=== PATIENT | female | born 1945 | race Caucasian/White ===

== ENCOUNTER → 2017-03-15 | Outpatient (CLI) | payer MEDICARE, BC | LOC: WI 10:01 | PROVIDERS: ATTEND Family Medicine | DX: Z12.31 Encounter for screening mammogram for malignant neoplasm of breast (principal) | CPT/HCPCS: 77067; G0202 ==

== ENCOUNTER → 2017-03-28 | Outpatient (CLI) | payer MEDICARE, BC ==
--- NOTE | 2017-03-28 14:39 | RADIOLOGY REPORT (SQ) ---
EXAM DESCRIPTION: CT CHEST WITHOUT COMPLETED DATE/TIME: 03/28/2017 1:41 pm REASON FOR STUDY: DYSPNEA, UNSPECIFIED R06.00 DYSPNEA, UNSPECIFIED COMPARISON: 09/24/2013 TECHNIQUE: CT scan performed of the chest without intravenous contrast. Images reviewed with lung, soft tissue and bone windows. Reconstructed coronal and sagittal MPR images reviewed. All images st ored on PACS. All CT scanners at this facility use dose modulation, iterative reconstruction, and/or weight based d osing when appropriate to reduce radiation dose to as low as reasonably achievable (ALARA). [facility]: Dose Right [facility]: CareDose [facility]: Dose Right [facility]: Teradose 4D [facility]: Symbios [employer] RADIATION DOSE: 9.29 mGy. LIMITATIONS: No technical limitations. FINDINGS: LUNGS AND PLEURA: There is a stable small pulmonary nodule at the posterior margin of righ t hemidiaphragm on image 79. This is seen on the prior study. No other pulmonary nodules are seen. There are no infiltrates or effusions. HILAR AND MEDIASTINAL STRUCTURES: No identified masses or abnormal nodes. No obvious aneurysm. HEART AND VASCULAR STRUCTURES: No aneurysm. No pericardial effusion. UPPER ABDOMEN: No significant findings. Limited exam. THYROID AND OTHER SOFT TISSUES: No masses. No adenopathy. BONES: There is a 6 mm sclerotic area in the posterior left 4th rib. This demonstrates an increase i n density compared to the earlier study HARDWARE: None in the chest. OTHER: No other significant findings. IMPRESSION: 1. Stable right pulmonary nodule with no acute cardiopulmonary disease. 2. Probable small bone island in the left proximal 4th rib. This is an isolated sclerotic lesion. No additional osseous lesions are seen. TECHNICAL DOCUMENTATION: JOB ID: [id number] Quality ID # [id number]: Final reports with documentation of one or more dose reduction techniques (e.g., Au tomated exposure control, adjustment of the mA and/or kV according to patient size, use of iterative reconstruction technique) 2010 [employer]- All Rights Reserved
--- NOTE | 2017-03-28 21:00 | XCELERA REPORT ---
[address] [address] Transthoracic Echocardiogram Report Name: MAICOL CERRATO Age: 72 yrs Gender: Female : 1945 Patient Status: Outpatient Patient Location: RAD Study Date: 03/28/2017 02:08 PM Height: 62 in Weight: 180 lb BSA: 1.8 m2 Reason For Study: DYSPNEA Ordering Physician: COCO WALDEN Performed By: Zee Mendoza Interpretation Summary .small apical ericardial effusion, cannot r/o pericardial fat pad by echo. AV is normal w 3 cusps, No no AR. Mild Mirtral annular calcification with ,ild MR and no LA enlargement, no MS LV shows no hypertrophy, normal LVEF 65%, and stage I LV diastolic dysfunction, no LV enlargement, no regional wall motion abnormality, except basal anrt. wall not well seen. TR poorly seen upper normal RVSP, may be due to error sampling TR jet MMode/2D Measurements \T\ Calculations RVDd: 3.0 cm LVIDd: 4.0 cm FS: 42.1 % Ao root diam: 1.9 cm IVSd: 1.00 cm LVIDs: 2.3 cm EDV(Teich): 70.0 ml LVPWd: 0.98 cm ESV(Teich): 18.5 ml Ao root area: 3.0 cm2 EF(Teich): 73.6 % LA dimension: 3.5 cm Doppler Measurements \T\ Calculations MV E max doug: MV P1/2t max doug: Ao V2 max: LV V1 max P.5 cm/sec 80.9 cm/sec 129.8 cm/sec 5.8 mmHg MV A max doug: MV P1/2t: 66.6 msec Ao max PG: LV V1 max: 103.7 cm/sec 6.7 mmHg 119.9 cm/sec MV E/A: 0.78 MVA(P1/2t): 3.3 cm2 MV dec slope: 356.0 cm/sec2 MV dec time: 0.22 sec PA V2 max: TR max doug: 77.5 cm/sec 255.2 cm/sec PA max P.4 mmHgTR max P.0 mmHg Left Ventricle The left ventricle is normal in size. There is normal left ventricular wall thickness. The left ventricular ejection fraction is normal. Doppler measurements suggest impaired left ventricular relaxation, which is associated with grade I/IV or mild diastolic dysfunction. Not all wall segments were well visualized. There is no thrombus. Right Ventricle The right ventricle is grossly normal size. Atria The right atrium is normal. The left atrial size is normal. The interatrial septum is intact with no evidence for an atrial septal defect. Mitral Valve The mitral valve is grossly normal. There is no evidence of mitral valve prolapse. There is no mitral valve stenosis. There is a mild amount of mitral regurgitation. Aortic Valve The aortic valve is grossly normal. The aortic valve is trileaflet. The aortic valve opens well. There is no aortic valvular vegetation. There is no aortic valve stenosis. No aortic regurgitation is present. Tricuspid Valve The tricuspid valve is not well visualized, but is grossly normal. There is no tricuspid valve prolapse. There is no tricuspid stenosis. There is a trace or physiologic amount of tricuspid regurgitation. Great Vessels The aortic root is normal size. Effusions Small pericardial effusion. I WMSI = 1.00 % Normal = 100 Segments Size X - Cannot 2 - 4 - 1-2 small Interpret 1 - Normal Hypokinetic 3 - AkineticDyskinetic 3-5 moderate 5 - 6-14 large Aneurysmal 15-16 diffuse : COCO WALDEN > Constantino Carey
== END ==
LOC: RAD 13:15
PROVIDERS: ATTEND Family Medicine
DX: R06.00 Dyspnea, unspecified (principal); R91.1 Solitary pulmonary nodule
CPT/HCPCS: 71250; 93306

== ENCOUNTER → 2018-03-17 | Outpatient (CLI) | payer MEDICARE, BC ==
--- NOTE | 2018-03-17 11:28 | WOMENS IMAGING REPORT ---
EXAM DESCRIPTION: 3D SCREENING MAMMO BILAT COMPLETED DATE/TIME: 03/17/2018 10:52 am REASON FOR STUDY: SCREENING MAMMO Z12.31 ENCNTR SCREEN MAMMOGRAM FOR MALIGNANT NEOPLASM OF KEILY COMPARISON: [id number] TECHNIQUE: Standard craniocaudal and mediolateral oblique views of each breast recorded using digita l acquisition and breast tomosynthesis. LIMITATIONS: None. FINDINGS: No masses, calcifications or architectural distortion. No areas of suspicion. Read with the assistance of CAD. .[facility] - R2 Cenova Version 1.3 .[facility] - R2 Cenova Version 1.3 .[facility] - R2 Cenova Version 2.4 .[facility] - R2 Cenova Version 2.4 .[facility] - R2 Ticket Scheduler Version 9.2 IMPRESSION: NORMAL MAMMOGRAM. BIRADS 1. BREAST DENSITY: b. There are scattered areas of fibroglandular density. BIRAD: 1 NEGATIVE RECOMMENDATION: ROUTINE SCREENING COMMENT: The patient has been notified of the results by letter per SA requirements. Additional no tification policies are in place for contacting patient with suspicious or incomplete findings. Quality ID #[id number]: The [employer] recommends an annual screening mammogram for women aged 40 years or over. This facility utilizes a reminder system to ensure that all patients receive reminder letters, and/or direct phone calls for appointments. This includes reminders for routine scr eening mammograms, diagnostic mammograms, or other Breast Imaging Interventions when appropriate. Th is patient will be placed in the appropriate reminder system. The [employer] (ACR) has developed recommendations for screening MRI of the breast s in certain patient populations, to be used in conjunction with mammography. Breast MRI surveillanc e may be appropriate for women with more than 20% lifetime risk of developing breast cancer as deter mined by genetic testing, significant family history of the disease, or history of mantle radiation f or Hodgkins Disease. ACR Practice Guidelines 2008. DBT Technology DBT is a type of tomographic mammography. With conventional mammography, overlapping breast tissue ma y make lesions difficult to detect, even with good compression. DBT uses an x-ray tube that rotates a round the breast, taking images at different angles. These images are then combined to create thin sl ices of the breast that the radiologist can view as a 3D reconstruction. The IPTE[employer] unit can perform full-field digital mammograms (2D imaging); or DBT (3D imaging); or both, in a combination mode that quickly performs both the mammogram and the tomosynthesis scan while the breast is still compressed. PQRS 6045F: Fluoroscopic imaging is not utilized for breast tomosynthesis. TECHNICAL DOCUMENTATION: FINDING NUMBER: (1) ASSESSMENT: (1) JOB ID: [id number] [employer]- All Rights Reserved Reading location - IP/workstation name: Unknown
== END ==
LOC: WI 10:19
PROVIDERS: ATTEND Physician Assistant
DX: Z12.31 Encounter for screening mammogram for malignant neoplasm of breast (principal)
CPT/HCPCS: 77063; 77067

== ENCOUNTER → 2019-05-23 | Outpatient (CLI) | payer MEDICARE, BC ==
--- NOTE | 2019-05-23 12:52 | WOMENS IMAGING REPORT ---
EXAM DESCRIPTION: BILAT SCREENING MAMMO W/CAD COMPLETED DATE/TIME: 05/23/2019 10:49 am REASON FOR STUDY: Z12.31 ENCOUNTER FOR SCREENING MAMMOGRAM FOR MALIGNANT NEOPLASM OF BREAST Z12.31 ENCNTR SCREEN MAMMOGRAM FOR MALIGNANT NEOPLASM OF KEILY COMPARISON: 2014 to 2017 EXAM PARAMETERS: Standard craniocaudal and mediolateral oblique views of each breast recorded using digital acquisition. Read with the assistance of CAD. .[facility] - [employer] 411 Directory Assistance Operator Version 9.2 LIMITATIONS: None. FINDINGS: No suspicious masses, suspicious calcifications or architectural distortion. No areas of c oncern. IMPRESSION: Negative MAMMOGRAM. BIRADS 1 BREAST DENSITY: b. There are scattered areas of fibroglandular density. BIRAD: ASSESSMENT: 1 NEGATIVE RECOMMENDATION: ROUTINE SCREENING COMMENT: The patient has been notified of the results by letter per MQSA requirements. Additional no tification policies are in place for contacting patient with suspicious or incomplete findings. Quality ID #[id number]: The [employer] recommends an annual screening mammogram for women aged 40 years or over. This facility utilizes a reminder system to ensure that all patients receive reminder letters, and/or direct phone calls for appointments. This includes reminders for routine scr eening mammograms, diagnostic mammograms, or other Breast Imaging Interventions when appropriate. Th is patient will be placed in the appropriate reminder system. TECHNICAL DOCUMENTATION: FINDING NUMBER: (1) ASSESSMENT: (1) JOB ID: [id number] [employer]- All Rights Reserved Reading location - IP/workstation name: [email or web address]
== END ==
LOC: WI 10:26
PROVIDERS: ATTEND Physician Assistant Medical
DX: Z12.31 Encounter for screening mammogram for malignant neoplasm of breast (principal)
CPT/HCPCS: 77067